=== PATIENT | female | born 1960 | race Two or more races ===

== ENCOUNTER 2024-05-19 22:45 | Emergency (ER) | payer MEDICAID, OTHER ==
[~2024-05-19] VITALS: Ht 162.6 cm; Wt 63.0 kg
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
[2024-05-20] MEDS: ACETAMINOPHEN 325 MG TAB PO ONE (00:39)
[2024-05-20 00:40] VITALS: BP 137/81; PULSE 84; RESP 14; TEMP 98.4; O2SAT 97
== END 2024-05-20 00:56 | disposition home or self-care (01) ==
LOC: EDBD 22:45 → ER 22:45
DX: S16.1XXA Strain of muscle, fascia and tendon at neck level, initial encounter (principal); S29.012A Strain of muscle and tendon of back wall of thorax, initial encounter; V89.2XXA Person injured in unspecified motor-vehicle accident, traffic, initial encounter; Y93.I9 Activity, other involving external motion; Y92.89 Other specified places as the place of occurrence of the external cause; Y99.8 Other external cause status
CPT/HCPCS: 70450; 71046; 72070; 72125